=== PATIENT | male | born 1980 | race Caucasian/White ===

== ENCOUNTER 2019-01-15 20:14 | Emergency (ER) | payer MEDICAID ==
[2019-01-15] MEDS: HYDROCODONE/APAP (5/325) TAB PO (21:40)
[2019-01-15] MEDS: DEXAMETHASONE 10 MG/ML 1 ML INJ IM (21:40)
[2019-01-15] MEDS: KETOROLAC 30 MG INJ IM (21:41)
[2019-01-15 22:10] LABS: CREATINE KINASE 44 IU/L (23-200)
== END 2019-01-16 00:55 | disposition home or self-care (01) ==
LOC: FTE 01-16 00:55
DX: M54.32 Sciatica, left side (principal); E11.9 Type 2 diabetes mellitus without complications; Z79.4 Long term (current) use of insulin; Z87.891 Personal history of nicotine dependence
CPT/HCPCS: 36415; 82550; 93971; 96372; 99285-25

== ENCOUNTER 2019-04-28 08:06 | Emergency (ER) | payer MEDICAID ==
[2019-04-28] MEDS: ONDANSETRON 4 MG INJ IV (08:41)
[2019-04-28] MEDS: morphine 4 MG/ML VIAL IV (08:42)
[2019-04-28] MEDS: CEFTRIAXONE 1 GM/50 ML (PMX) 50 ML IVPB (08:42)
[2019-04-28] MEDS: SOD CHLORIDE 0.9% 1,000 ML IV (08:42)
[2019-04-28 08:53] LABS: ADD MAN DIFF? NO
[2019-04-28 08:57] LABS: BASOPHIL # 0.1 10^3/ul (0.0-0.1); BASOPHILS % 0.6 % (0.0-2.0); EOSINOPHILS # 0.1 10^3/ul (0.0-0.5); EOSINOPHILS % 1.2 % (0.0-7.0); HEMOGLOBIN 13.4 g/dl (14.0-18.0); LYMPHOCYTES # 2.2 10^3/ul (0.8-2.9); LYMPHOCYTES % 22.2 % (15.0-51.0); MEAN CORPUSCULAR HEMOGLOBIN 27.6 pg (29.0-33.0); MEAN CORPUSCULAR HGB CONC 33.5 g/dl (32.0-37.0); MEAN CORPUSCULAR VOLUME 82.5 fl (82.0-101.0); MEAN PLATELET VOLUME 11.4 fl (7.4-10.4); MONOCYTE # 1.3 10^3/ul (0.3-0.9); MONOCYTES % 13.3 % (0.0-11.0); NEUTROPHIL # 6.3 10^3/ul (1.6-7.5); NEUTROPHILS % 62.4 % (39.0-77.0); PLATELET COUNT 227 10^3/UL (140-415); RED BLOOD COUNT 4.85 10^6/ul (4.70-6.10)
[2019-04-28 09:16] LABS: ALANINE AMINOTRANSFERASE 55 IU/L (13-69); ALBUMIN 4.2 g/dl (3.3-4.9); ALBUMIN/GLOBULIN RATIO 1.23; ALKALINE PHOSPHATASE 84 IU/L (42-121); ANION GAP 13 (5-13); ASPARTATE AMINO TRANSFERASE 36 IU/L (15-46); BILIRUBIN,INDIRECT 0.3 mg/dl (0-1.1); BILIRUBIN,TOTAL 0.3 mg/dl (0.2-1.3); BLOOD UREA NITROGEN 18 mg/dl (7-20); CALCIUM 9.8 mg/dl (8.4-10.2); CARBON DIOXIDE 29 mmol/L (21-31); CHLORIDE 104 mmol/L (97-110); CREATININE 0.88 mg/dl (0.61-1.24); Estimated GFR > 60 mL/min (>60); GLUCOSE 80 mg/dl (70-220); POTASSIUM 4.4 mmol/L (3.5-5.1); SODIUM 146 mmol/L (135-144); TOTAL PROTEIN 7.6 g/dl (6.1-8.1)
[2019-04-28] MEDS: SOD CHLORIDE 0.9% 100 ML (09:41)
[2019-04-28] MEDS: IOHEXOL 300MG/ML 150 ML BTL (09:42)
[2019-04-28] MEDS: morphine 2 MG INJ IV (11:45)
== END 2019-04-28 12:02 | disposition home or self-care (01) ==
LOC: FTE 12:02
DX: H70.001 Acute mastoiditis without complications, right ear (principal); E11.9 Type 2 diabetes mellitus without complications; Z79.4 Long term (current) use of insulin
CPT/HCPCS: 36415; 70470; 70480; 80053; 85025; 96365; 96375; 96376; 99285-25

== ENCOUNTER 2019-05-11 13:16 | Inpatient (IN) | payer MEDICAID ==
[2019-05-11] MEDS: morphine 4 MG/ML VIAL IV (13:58)
[2019-05-11] MEDS: ONDANSETRON 4 MG INJ IV (13:58)
[2019-05-11] MEDS: SOD CHLORIDE 0.9% 1,000 ML IV ×3 (13:59→20:01)
[2019-05-11 14:13] LABS: ADD MAN DIFF? NO
[2019-05-11 14:14] LABS: BASOPHIL # 0.1 10^3/ul (0.0-0.1); BASOPHILS % 0.5 % (0.0-2.0); EOSINOPHILS # 0.1 10^3/ul (0.0-0.5); EOSINOPHILS % 0.4 % (0.0-7.0); HEMATOCRIT 37.1 % (42.0-52.0); HEMOGLOBIN 12.6 g/dl (14.0-18.0); LYMPHOCYTES # 1.5 10^3/ul (0.8-2.9); LYMPHOCYTES % 8.8 % (15.0-51.0); MEAN CORPUSCULAR HEMOGLOBIN 27.2 pg (29.0-33.0); MEAN CORPUSCULAR VOLUME 80.1 fl (82.0-101.0); MEAN PLATELET VOLUME 11.9 fl (7.4-10.4); MONOCYTES % 6.1 % (0.0-11.0); NEUTROPHIL # 14.1 10^3/ul (1.6-7.5); NEUTROPHILS % 83.8 % (39.0-77.0); PLATELET COUNT 249 10^3/UL (140-415); RED BLOOD COUNT 4.63 10^6/ul (4.70-6.10); RED CELL DISTRIBUTION WIDTH 12.7 % (11.5-14.5)
[2019-05-11 14:14] LABS: WHITE BLOOD COUNT 16.8 10^3/ul (4.8-10.8)
[2019-05-11 14:25] LABS: ADD UMIC NO; UR ASCORBIC ACID NEGATIVE (NEGATIVE); UR BILIRUBIN (Dip) NEGATIVE (NEGATIVE); UR BLOOD (Dip) NEGATIVE (NEGATIVE); UR CLARITY CLEAR (CLEAR); UR COLOR STRAW (YELLOW); UR GLUCOSE (Dip) 3+ mg/dL (NEGATIVE); UR KETONES (Dip) NEGATIVE (NEGATIVE); UR LEUKOCYTE ESTERASE (Dip) NEGATIVE Leu/ul (NEGATIVE); UR NITRITE (Dip) NEGATIVE (NEGATIVE); UR SPECIFIC GRAVITY (Dip) 1.024 (1.003-1.030); UR TOTAL PROTEIN (Dip) NEGATIVE (NEGATIVE); UR UROBILINOGEN (Dip) NEGATIVE (NEGATIVE)
[2019-05-11 14:30] LABS: ALANINE AMINOTRANSFERASE 22 IU/L (13-69); ALBUMIN 4.1 g/dl (3.3-4.9); ALBUMIN/GLOBULIN RATIO 1.17; ALKALINE PHOSPHATASE 83 IU/L (42-121); ANION GAP 14 (5-13); ASPARTATE AMINO TRANSFERASE 15 IU/L (15-46); BILIRUBIN,INDIRECT 0.7 mg/dl (0-1.1); BILIRUBIN,TOTAL 0.7 mg/dl (0.2-1.3); BLOOD UREA NITROGEN 25 mg/dl (7-20); CALCIUM 9.5 mg/dl (8.4-10.2); CARBON DIOXIDE 28 mmol/L (21-31); CHLORIDE 96 mmol/L (97-110); CREATININE 1.06 mg/dl (0.61-1.24); Estimated GFR > 60 mL/min (>60); SODIUM 138 mmol/L (135-144); TOTAL PROTEIN 7.6 g/dl (6.1-8.1)
[2019-05-11 14:34] LABS: GLUCOSE 494 mg/dl (70-220)
[2019-05-11] MEDS: SOD CHLORIDE 0.9% 100 ML (14:49)
[2019-05-11] MEDS: IOHEXOL 300MG/ML 150 ML BTL (14:53)
[2019-05-11] MEDS: INSULIN REGULAR, HUMAN 100 UNIT/1 ML 3ML VIAL IV (14:58)
[2019-05-11] MEDS: PIPER-TAZO 3.375 GM IV (PMX) 100 ML IVPB ×2 (15:40→23:56)
[2019-05-11] MEDS: VANCOMYCIN 1 GM (PMX) 250 ML IVPB (16:26)
[2019-05-11] MEDS: HYDROmorphONE 0.5 MG/0.5 ML SYG IV (17:23)
[2019-05-11] MEDS ORDERED: ACETAMINOPHEN 325 MG TAB PO (17:30)
[2019-05-11] MEDS ORDERED: ONDANSETRON 4 MG INJ IV ×2 (17:30→19:00)
[2019-05-11] MEDS ORDERED: GLUCOSE GEL 15 GRAM TUBE BUCCAL (19:00)
[2019-05-11] MEDS ORDERED: DEXTROSE 50% 50 ML SYRINGE IV ×2 (19:00)
[2019-05-11] MEDS ORDERED: LORAZEPAM 2 MG INJ IV (19:00)
[2019-05-11] MEDS ORDERED: MAGNESIUM HYDROXIDE 30ML CUP PO (19:00)
[2019-05-11] MEDS ORDERED: DOCUSATE SODIUM 100 MG CAP PO (19:00)
[2019-05-11] MEDS ORDERED: NACL 0.9% 3 ML SYG IV (19:00)
[2019-05-11] MEDS ORDERED: GLUCOSE GEL 15 GRAM TUBE PO ×2 (19:00)
[2019-05-11] MEDS ORDERED: GLUCAGON 1 MG INJ IM (19:00)
[2019-05-11] MEDS ORDERED: hydrALAzine 20 MG INJ IV (19:00)
[2019-05-11] MEDS ORDERED: NITROGLYCERIN (SL) 0.4 MG TAB SL (19:00)
[2019-05-11] MEDS ORDERED: ALBUTEROL/IPRATROPIUM (NEB) 3 ML AMP HHN (19:00)
[2019-05-11 19:05] LABS: FREE T4 (FREE THYROXINE) 1.63 ng/dl (0.79-2.35)
[2019-05-11] MEDS: HYDROCODONE/APAP (5/325) TAB PO (19:45)
[2019-05-11] MEDS ORDERED: INSULIN ASPART [NOVOLOG] 3 ML PEN SC (21:00)
[2019-05-11] MEDS: INSULIN ASPART [NOVOLOG] 3 ML PEN SC (21:00)
[2019-05-11] MEDS: FISH OIL 1,000 MG CAP PO (21:19)
[2019-05-11] MEDS: INSULIN GLARGINE [LANTus] (100 UNITS/ML) SYG SC (21:20)
[2019-05-11] MEDS: morphine 2 MG INJ IV (22:15)
[2019-05-11 22:50] LABS: ANION GAP 8 (5-13); BLOOD UREA NITROGEN 19 mg/dl (7-20); CALCIUM 8.2 mg/dl (8.4-10.2); CARBON DIOXIDE 26 mmol/L (21-31); CHLORIDE 104 mmol/L (97-110); CREATININE 0.89 mg/dl (0.61-1.24); Estimated GFR > 60 mL/min (>60); GLUCOSE 185 mg/dl (70-220); POTASSIUM 4.4 mmol/L (3.5-5.1); SODIUM 138 mmol/L (135-144)
[2019-05-12] MEDS: HYDROCODONE/APAP (5/325) TAB PO ×3 (01:51→20:29)
[2019-05-12] MEDS: ACCU-CHEK XX (02:00)
[2019-05-12 05:44] LABS: ADD MAN DIFF? NO
[2019-05-12 05:48] LABS: BASOPHIL # 0.1 10^3/ul (0.0-0.1); BASOPHILS % 0.5 % (0.0-2.0); EOSINOPHILS # 0.2 10^3/ul (0.0-0.5); EOSINOPHILS % 1.1 % (0.0-7.0); HEMATOCRIT 32.1 % (42.0-52.0); HEMOGLOBIN 10.9 g/dl (14.0-18.0); LYMPHOCYTES % 17.9 % (15.0-51.0); MEAN CORPUSCULAR HEMOGLOBIN 27.3 pg (29.0-33.0); MEAN CORPUSCULAR VOLUME 80.5 fl (82.0-101.0); MEAN PLATELET VOLUME 11.8 fl (7.4-10.4); MONOCYTE # 1.1 10^3/ul (0.3-0.9); MONOCYTES % 6.9 % (0.0-11.0); NEUTROPHIL # 12.1 10^3/ul (1.6-7.5); NEUTROPHILS % 73.1 % (39.0-77.0); PLATELET COUNT 215 10^3/UL (140-415); RED BLOOD COUNT 3.99 10^6/ul (4.70-6.10); RED CELL DISTRIBUTION WIDTH 12.9 % (11.5-14.5)
[2019-05-12 05:48] LABS: WHITE BLOOD COUNT 16.6 10^3/ul (4.8-10.8)
[2019-05-12 06:07] LABS: HEMOGLOBIN A1C 9.2 % (0-5.9)
[2019-05-12] MEDS: PIPER-TAZO 3.375 GM IV (PMX) 100 ML IVPB ×3 (06:08→17:11)
[2019-05-12] MEDS: SOD CHLORIDE 0.9% 1,000 ML IV ×3 (06:08→20:42)
[2019-05-12] MEDS: PANTOPRAZOLE (EC) 40 MG TAB PO (06:08)
[2019-05-12] MEDS: morphine 2 MG INJ IV ×4 (06:11→23:16)
[2019-05-12 06:15] LABS: ANION GAP 8 (5-13); BLOOD UREA NITROGEN 17 mg/dl (7-20); CALCIUM 8.3 mg/dl (8.4-10.2); CARBON DIOXIDE 27 mmol/L (21-31); CHLORIDE 104 mmol/L (97-110); CHOL/HDL RATIO 3.1 RATIO; CHOLESTEROL 93 mg/dl (100-200); CREATININE 0.83 mg/dl (0.61-1.24); Estimated GFR > 60 mL/min (>60); GLUCOSE 148 mg/dl (70-220); HDL CHOLESTEROL 30 mg/dl (27-67); LDL CHOLESTEROL,CALCULATED 45 mg/dl; MAGNESIUM 1.3 mg/dl (1.7-2.5); PHOSPHORUS 3.9 mg/dl (2.5-4.9); POTASSIUM 4.6 mmol/L (3.5-5.1); SODIUM 139 mmol/L (135-144); TRIGLYCERIDES 88 mg/dl (0-149)
[2019-05-12] MEDS: FISH OIL 1,000 MG CAP PO ×2 (08:13→20:30)
[2019-05-12] MEDS: INSULIN ASPART [NOVOLOG] 3 ML PEN SC ×4 (08:15→20:35)
[2019-05-12] MEDS: LIDOCAINE 1%/EPI (MDV) 50 ML INJ INJ (12:55)
[2019-05-12] MEDS: LIDOCAINE 1%/EPI 30 ML INJ INJ (12:55)
[2019-05-12] MEDS: MAGNESIUM SULFATE 3 GM in DEXTROSE 5% 100 ML IVPB (13:21)
[2019-05-12] MEDS: ACETAMINOPHEN 325 MG TAB PO (14:01)
[2019-05-12] MEDS: HYDROmorphONE 1 MG/ML SYG IV (14:21)
[2019-05-12] MEDS: INSULIN GLARGINE [LANTus] (100 UNITS/ML) SYG SC (20:36)
[2019-05-13] MEDS: PIPER-TAZO 3.375 GM IV (PMX) 100 ML IVPB ×4 (00:55→17:01)
[2019-05-13] MEDS: ACCU-CHEK XX (02:00)
[2019-05-13] MEDS: morphine 2 MG INJ IV ×4 (03:41→20:21)
[2019-05-13 06:08] LABS: ADD MAN DIFF? NO
[2019-05-13 06:10] LABS: WHITE BLOOD COUNT 11.9 10^3/ul (4.8-10.8)
[2019-05-13 06:10] LABS: BASOPHIL # 0.1 10^3/ul (0.0-0.1); BASOPHILS % 0.6 % (0.0-2.0); EOSINOPHILS # 0.3 10^3/ul (0.0-0.5); EOSINOPHILS % 2.4 % (0.0-7.0); HEMATOCRIT 31.1 % (42.0-52.0); HEMOGLOBIN 10.8 g/dl (14.0-18.0); LYMPHOCYTES # 2.7 10^3/ul (0.8-2.9); LYMPHOCYTES % 22.6 % (15.0-51.0); MEAN CORPUSCULAR HEMOGLOBIN 27.8 pg (29.0-33.0); MEAN CORPUSCULAR HGB CONC 34.7 g/dl (32.0-37.0); MEAN CORPUSCULAR VOLUME 79.9 fl (82.0-101.0); MEAN PLATELET VOLUME 11.7 fl (7.4-10.4); MONOCYTES % 8.1 % (0.0-11.0); NEUTROPHIL # 7.8 10^3/ul (1.6-7.5); PLATELET COUNT 211 10^3/UL (140-415); RED BLOOD COUNT 3.89 10^6/ul (4.70-6.10); RED CELL DISTRIBUTION WIDTH 12.7 % (11.5-14.5)
[2019-05-13] MEDS: PANTOPRAZOLE (EC) 40 MG TAB PO (06:12)
[2019-05-13 07:27] LABS: MAGNESIUM 1.7 mg/dl (1.7-2.5)
[2019-05-13 07:27] LABS: PHOSPHORUS 4.1 mg/dl (2.5-4.9)
[2019-05-13 07:28] LABS: ANION GAP 9 (5-13); BLOOD UREA NITROGEN 11 mg/dl (7-20); CALCIUM 8.5 mg/dl (8.4-10.2); CARBON DIOXIDE 28 mmol/L (21-31); CHLORIDE 103 mmol/L (97-110); CREATININE 0.74 mg/dl (0.61-1.24); Estimated GFR > 60 mL/min (>60); GLUCOSE 108 mg/dl (70-220); POTASSIUM 4.2 mmol/L (3.5-5.1); SODIUM 140 mmol/L (135-144)
[2019-05-13] MEDS: SOD CHLORIDE 0.9% 1,000 ML IV ×2 (07:57→20:16)
[2019-05-13] MEDS: INSULIN ASPART [NOVOLOG] 3 ML PEN SC ×4 (08:00→20:14)
[2019-05-13] MEDS: FISH OIL 1,000 MG CAP PO ×2 (08:02→20:15)
[2019-05-13] MEDS: HYDROCODONE/APAP (5/325) TAB PO (15:42)
[2019-05-13] MEDS: INSULIN GLARGINE [LANTus] (100 UNITS/ML) SYG SC (20:15)
[2019-05-14] MEDS: PIPER-TAZO 3.375 GM IV (PMX) 100 ML IVPB ×3 (00:51→12:39)
[2019-05-14] MEDS: ACCU-CHEK XX (02:17)
[2019-05-14 05:50] LABS: ADD MAN DIFF? NO
[2019-05-14 05:52] LABS: BASOPHIL # 0.1 10^3/ul (0.0-0.1); BASOPHILS % 0.7 % (0.0-2.0); EOSINOPHILS # 0.4 10^3/ul (0.0-0.5); EOSINOPHILS % 4.5 % (0.0-7.0); HEMATOCRIT 30.9 % (42.0-52.0); HEMOGLOBIN 10.7 g/dl (14.0-18.0); LYMPHOCYTES # 2.9 10^3/ul (0.8-2.9); LYMPHOCYTES % 35.3 % (15.0-51.0); MEAN CORPUSCULAR HEMOGLOBIN 27.9 pg (29.0-33.0); MEAN CORPUSCULAR HGB CONC 34.6 g/dl (32.0-37.0); MEAN CORPUSCULAR VOLUME 80.7 fl (82.0-101.0); MEAN PLATELET VOLUME 11.8 fl (7.4-10.4); MONOCYTE # 0.7 10^3/ul (0.3-0.9); MONOCYTES % 8.1 % (0.0-11.0); NEUTROPHIL # 4.2 10^3/ul (1.6-7.5); NEUTROPHILS % 51.2 % (39.0-77.0); PLATELET COUNT 235 10^3/UL (140-415); RED BLOOD COUNT 3.83 10^6/ul (4.70-6.10); RED CELL DISTRIBUTION WIDTH 12.7 % (11.5-14.5)
[2019-05-14 05:52] LABS: WHITE BLOOD COUNT 8.1 10^3/ul (4.8-10.8)
[2019-05-14] MEDS: PANTOPRAZOLE (EC) 40 MG TAB PO (06:09)
[2019-05-14] MEDS: SOD CHLORIDE 0.9% 1,000 ML IV (06:09)
[2019-05-14 06:30] LABS: ANION GAP 7 (5-13); BLOOD UREA NITROGEN 13 mg/dl (7-20); CALCIUM 8.9 mg/dl (8.4-10.2); CARBON DIOXIDE 30 mmol/L (21-31); CHLORIDE 105 mmol/L (97-110); CREATININE 0.78 mg/dl (0.61-1.24); Estimated GFR > 60 mL/min (>60); GLUCOSE 117 mg/dl (70-220); POTASSIUM 4.5 mmol/L (3.5-5.1); SODIUM 142 mmol/L (135-144)
[2019-05-14] MEDS: INSULIN ASPART [NOVOLOG] 3 ML PEN SC ×2 (08:00→12:33)
[2019-05-14] MEDS: FISH OIL 1,000 MG CAP PO (08:23)
== END 2019-05-14 15:00 | disposition home or self-care (01) | DRG 607 ==
LOC: FTE 13:16 → PP2 17:06
PROVIDERS: Hospitalist
PROC: 099 Ear, Nose, Sinus, Drainage (ICD-10-PCS; principal; 2019-05-11)
DX: L72.3 Sebaceous cyst (principal); B95.0 Streptococcus, group A, as the cause of diseases classified elsewhere; E11.9 Type 2 diabetes mellitus without complications; E78.5 Hyperlipidemia, unspecified; H66.41 Suppurative otitis media, unspecified, right ear; H60.01 Abscess of right external ear; Z79.4 Long term (current) use of insulin
CPT/HCPCS: 36415; 70480; 80048; 80053; 80061; 81003; 82962; 83036; 83605; 83735; 84100; 84439; 84443; 85025; 87040-91; 87070; 96361; 96365; 96367; 96375; 99285-25